=== PATIENT | male | born 1975 | race Caucasian/White ===

== ENCOUNTER 2016-10-10 02:34 | Emergency (ER) | payer MEDICAID, OTHER ==
[~2016-10-10] VITALS: Ht 157.5 cm; Wt 95.5 kg
[~2016-10-10 02:34] MED LIST: ASPI-664 PO; BENA10TA48 PO; METO-103 PO; NOV70303I SQ
[2016-10-10 02:51] VITALS: Ht 157.5 cm; Wt 95.5 kg
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
[2016-10-10] MEDS ORDERED: ACETAMINOPHEN 325 MG TAB PO ONE (03:30)
--- NOTE | 2016-10-10 04:40 | RADRPT ---
PROCEDURE: XR Ribs. CLINICAL INDICATION: Fall, pain TECHNIQUE: Multiple oblique views of the left ribs were obtained. The images were reviewed on a [employer] workstation. COMPARISON: None. FINDINGS: No definite fracture or pneumothorax is seen. No pleural effusion is seen. IMPRESSION: No definite fracture or pneumothorax. RPTAT: [facility] Katja Solares Physician Date Time Electronically viewed and signed by Katja Solares Physician on 10/10/2016 04:40 FRIDA/
[2016-10-10] MEDS ORDERED: NAPR-260 PO (04:54)
[2016-10-10] MEDS ORDERED: HYDR-906 PO (04:54)
[2016-10-10 05:03] VITALS: BP 144/94; PULSE 94; RESP 18; TEMP 97.8
--- NOTE | 2016-10-11 11:38 | RADRPT ---
PROCEDURE: Right rib series CLINICAL INDICATION: Trauma and pain. TECHNIQUE: 3 views. COMPARISON: None FINDINGS: No acute fractures or lesions are noted to the visualized right ribs. IMPRESSION: 1. No significant abnormalities noted to the visualized right ribs. RPTAT: HH .Frank West MD, Date Time Electronically viewed and signed by .Frank West MD, on 10/11/2016 11:38 .G/
== END 2016-10-10 05:05 | disposition home or self-care (01) ==
LOC: FTE 02:34
DX: S20.212A Contusion of left front wall of thorax, initial encounter (principal); E11.9 Type 2 diabetes mellitus without complications; I10 Essential (primary) hypertension; V18.4XXA Pedal cycle driver injured in noncollision transport accident in traffic accident, initial encounter; Z79.82 Long term (current) use of aspirin; Z79.4 Long term (current) use of insulin
CPT/HCPCS: 71100; Z7610

== ENCOUNTER 2017-11-29 14:17 | Emergency (ER) | END 2017-11-29 16:35 | disposition home or self-care (01) ==

== ENCOUNTER 2018-07-05 02:54 | Emergency (ER) | END 2018-07-05 06:04 | disposition home or self-care (01) ==